=== PATIENT | male | born 1975 | race African-American/Black ===

== ENCOUNTER 2018-11-30 12:05 | Observation (INO) | payer SELFPAY ==
[~2018-11-30] VITALS: Ht 193 cm; Wt 135.0 kg
[2018-11-30] VITALS (13 sets, daily range): BP systolic 93–144; BP diastolic 64–86
--- NOTE | 2018-11-30 12:28 | NUR ---
PT AMB TO ROOM IN NO DISTRESS
[2018-11-30 12:51] LABS: HEMATOCRIT 41.1 % (39.0-50.0); HEMOGLOBIN 13.4 g/dl (14.0-18.0); IMMATURE GRANULOCYTES 0.2 % (0.0-5.0); MEAN CELL VOLUME 80.1 fL CALC (80.0-100.0); MEAN CORPUSCULAR HGB 26.1 pG CALC (26.0-32.0); MEAN CORPUSCULAR HGB CONC 32.6 g/L CALC (32.0-36.0); NEUT# 6.09 thou/uL (1.82-7.42); RED BLOOD COUNT 5.13 mill/uL (4.70-6.10); RED CELL DISTRI WIDTH 13.3 % (11.5-15.5)
[2018-11-30 13:06] LABS: ALBUMIN 4.7 g/dL (3.2-5.0); ALKALINE PHOSPHATASE 241 u/l (38-126); BILIRUBIN, TOTAL 1.4 mg/dL (0.0-1.4); BUN 25 mg/dL (9-20); BUN/CREATININE RATIO 18 (12-20 (CALC)); CARBON DIOXIDE 22 mmol/l (22-30); CHLORIDE 89 mmol/l (95-108); CREATININE 1.4 mg/dL (0.7-1.3); GFR 56 ML/MIN (>=60 (CALC)); GFR FOR AFR.AMER. > 60 ML/MIN (>=60 (CALC)); SGOT/AST 37 u/l (17-59); SODIUM 127 mmol/l (137-146); TOTAL PROTEIN 7.8 g/dL (6.3-8.2)
[2018-11-30 13:16] LABS: ANION GAP 21 (6-22 (CALC)); POTASSIUM 5.4 mmol/l (3.5-5.1)
[2018-11-30 13:17] LABS: URINE BILIRUBIN - DIPSTICK NEGATIVE (NEGATIVE); URINE BLOOD DIPSTICK NEGATIVE (NEGATIVE); URINE COLOR YELLOW; URINE GLUCOSE - DIPSTICK >=1000 mg/dL (NEGATIVE); URINE KETONE NEGATIVE (NEGATIVE); URINE LEUK ESTERASE NEGATIVE (NEGATIVE); URINE NITRITE - DIPSTICK NEGATIVE (Negative); URINE PH 5.5 (4.5-8.0); URINE PROTEIN - DIPSTICK NEGATIVE (NEG-TRACE); URINE SPECIFIC GRAVITY <=1.005; URINE UROBILINOGEN - DIPSTICK 0.2 E.U./dL (0.2)
[2018-11-30] MEDS ORDERED: AMLODIPINE5 MG PO (13:23)
[2018-11-30] MEDS ORDERED: METOPROL TAR25 MG PO (13:23)
[2018-11-30] MEDS ORDERED: HUMULIN 70/30 SC (13:24)
--- NOTE | 2018-11-30 13:27 | NUR ---
PT STATES HE DOESNT WANT TO STAY IN HOSPITAL, JULIANNA BARON WENT INTO SPEAK TO PT. AFTER TALKING TO PT FOR ABOUT 15 MIN, PT HAS DECIDED TO STAY AND TRY AND GET INSULIN DOWN.
--- NOTE | 2018-11-30 13:34 | NUR ---
PT REMAINS ALERT/ORIENTED X3. VITAL SIGNS STABLE. PT STATES HE TRIED TO GET HIS INSULIN AFTER BEING DISCHARGED FROM [place] BUT INSULIN WAS GOING TO BE OVER 400 A BOTTLE AND COULD NOT AFFORD IT.
--- NOTE | 2018-11-30 13:40 | NUR ---
DR. SEQUEIRA IS EXAMINING PT AND SPEAKING TO HIM AT THIS TIME
--- NOTE | 2018-11-30 14:07 | NUR ---
INSULIN DRIP BEGUN AT 5 UNITS PER HOUR FOR BLOOD SUGAR OF 826..
--- NOTE | 2018-11-30 14:12 | NUR ---
AFTER LOOKING AT EKG, DR. KONG ASKING FOR A CARDIOLOGY CONSULT,
--- NOTE | 2018-11-30 14:25 | NUR ---
ELIZABETH PERFORMED AGAIN, REMAINS READING HI, NOTIFIED, NO NEW ORDERS GIVEN
--- NOTE | 2018-11-30 14:29 | NUR ---
REPORT GIVEN TO ICU, PT PLACED ON STRETCHER, WITH CARDIAC MONITER TO GO TO ICU
--- NOTE | 2018-11-30 14:40 | NUR ---
PT TAKEN TO ICU PER STRETCHER AND MONITER.
--- NOTE | 2018-11-30 14:45 | NUR ---
PT ARRIVED TO UNIT VIA STRETCHER WITH ER STAFF; ALERT AND ORIENTED. AMBULATED TO BED INDEPENDENTLY WITH STEADY GAIT. DENIES PAIN. RESPIRATIONS EVEN AND UNLABORED ON ROOM AIR. INSULIN DRIP INFUSING UPON ARRIVAL AT 5 UNITS/HR AND MAINTANCE FLUIDS INFUSING AT 100ML/HR PER ORDER. PT REQUESTED TO URINATE AND VOIDED 325ML CLEAR YELLOW URINE. ORIENTED TO ROOM AND CALL LIGHT SYSTEM. PLAN OF CARE DISCUSSED. PT ENCOURAGED TO VERBALIZE CONCERNS. STATES UNDERSTANDING. SAFETY MEASURES IN PLACE. CALL LIGHT WITHIN REACH.
--- NOTE | 2018-11-30 15:13 | NUR ---
UPON ARRIVAL ACCU CHECK CONTINUES TO READ CR HI; STAT SERUM GLUCOSE OBTAINED; AWAITING RESULTS. SOME EDUCATION PROVIDED TO PT ON DM. PT REQUESTING SNACK. ASSESSMENT COMPLETE. TYESHA BARKER.
--- NOTE | 2018-11-30 16:08 | NUR ---
LAB CALLED WITH CRITICAL GLUCOSE RESULT OF 637. HOURLY ACCU CHECK AT THIS TIME READS CRITICALLY HIGH; WILL CONTINUE INSULIN DRIP AT 5 UNITS/HR PER PROTOCOL. PT HAS NO REQUESTS OR CONCERNS AT THIS TIME.
--- NOTE | 2018-11-30 18:15 | NUR ---
ACCU CHECK DOWN TO 375 AND INSULIN DRIP TITRATED TO 4 UNITS/HR. DINNER PROVIDED. PT SITTING UP ON EDGE OF BED TO USE URINAL.
--- NOTE | 2018-11-30 19:03 | NUR ---
PATIENT IS LAERT AND ORIENTED X4, ON ROOM AIR, SATS 95%. AFEBRILE. BILATERAL PUPILS 4 MM BRISK AND REACTIVE TO LIGHT. PATIENT SITTING UP ON SIDE OF THE BED, REPORTS HE FELT LIKE HIS RIGHT LEG WAS "CRAMPNG," OTHERWISE HE IS PAIN FREE, NO CHEST PAIN, NO SHORTNESS OF BREATH. LUNG SOUNDS ARE CLEAR. ABDOMEN IS SOFT AND ACTIVE BOWEL SOUNDS, HE WAS ABLE TO TOLERATE HIS DINNER MEAL, IS ASKING FOR A DIET CHERI CRISTOBAL WITH ICE. RADIAL AND PEDAL PULSES ARE STRONG. NO EDEMA PRESENT. RAC IV INTACT AND FLUSHES PROPERLY, SALINE LOCKED. LAC IV INTACT AND HAS INSULIN DRIP INFUSING AT 4 UNITS/HR OR 4 ML/HR ALONG WITH LACTATED RINGERS INFUSING AT 100 ML/HR. BLOOD SUGAR WAS 321 MG/DL. PATIENT WAS EDUCATED ON HOURLY BLOOD GLUCOSE INSULIN CHECKS AND EXPLAINED TO HIM RIPRAP MAN WILL BE COMING THROUGH THE NIGHT FOR BLOOD DRAW TO CHECK HIS TROPONIN LABS. PATIENT EDUCATED AUTOMATIC GLOVE TURNER AND FORMER LIGHT. CALL LIGHT WITHIN REACH.
--- NOTE | 2018-11-30 20:00 | NUR ---
BS 270, TITRATED INSULIN DRIP TO 3 UNITS/HR OR 3 ML/HR, PATIENT HAD QUESTION ABOUT HIS BLOOD PRESSURE MEDICATIONS, EDUCATED ON WHAT MEDICATIONS HE WILL BE RECEIVING TONIGHT INCLUDING HIS HOME MEDICATIONS. PATIENT UNDERSTANDS AND AGREES, NO OTHER NEEDS AT THIS TIME. CALL LIGHT WITHIN REACH.
--- NOTE | 2018-11-30 22:00 | NUR ---
PATIENT WITH EYES CLOSED, EASILY AROUSES. ON ROOM AIR, SATS 95%. NO ACUTE DISTRESS SHOWN. NO PAIN REPORTED. BS IS 299, REMAINS ON 3 UNITS/HR OR 3ML/HR ON THE INSULIN DRIP. NO NEEDS AT THIS TIME, CALL LIGHT WITHIN REACH.
[2018-12-01] VITALS (12 sets, daily range): BP systolic 86–124; BP diastolic 66–77
--- NOTE | 2018-12-01 00:06 | NUR ---
PATIENT WITH HOB 30 DEGREES, HAS EYES CLOSED, AROUSES EASILY. ON ROOM AIR. NO ACUTE DISTRESS SHOWN. BS IS 240 AND INSLIN DRIP REMAINS AT 3 UNITS/HR, HAD TO PRICK DIFFRENT FINGERS A FEW TIMES SINCE NOT ENOUGH BLOOD SAMPLE FOR ACCUCHECK MACHINE TO READ, PATIENT TOLERATED. NO PAIN REPORTED, NO NEEDS AT THIS TIME. CALL LIGHT WITHIN REACH.
--- NOTE | 2018-12-01 00:15 | NUR ---
UPPER AND BOTTOM LACER HAND IN ROOM FOR BLOOD DRAW.
--- NOTE | 2018-12-01 02:00 | NUR ---
PATIENT IS SLEEPING, NO ACUTE DISTRESS SHOWN, ON ROOM AIR. NO REPORTS OF PAIN. BS 205, INSULIN DRIP REMAINS AT 3 UNITS PER HOUR, NOW ON NORMAL SLAINE AT 100ML/HR. NO NEEDS AT THIS TIME. CALL LIGHT WITHIN REACH.
--- NOTE | 2018-12-01 03:00 | NUR ---
PATIENT'S BS IS 174 MG/DL, INSULIN DRIP TITRATED TO 2 UNITS/HR OR 2 ML/HR.
--- NOTE | 2018-12-01 04:00 | NUR ---
PATIENT IS SLEEPING, ON ROOM AIR, SATS 94%. NO ACUTE DISTRESS SHOWN. BS 198 AND INSULIN DRIP IS INFUSING AT 2 UNITS/HR. NO NEEDS AT THIS TIME. CALL LIGHT WITHIN REACH.
[2018-12-01 06:17] LABS: HEMATOCRIT 41.4 % (39.0-50.0); HEMOGLOBIN 13.5 g/dl (14.0-18.0); MEAN CELL VOLUME 79.6 fL CALC (80.0-100.0); MEAN CORPUSCULAR HGB CONC 32.6 g/L CALC (32.0-36.0); RED BLOOD COUNT 5.2 mill/uL (4.70-6.10); RED CELL DISTRI WIDTH 13.5 % (11.5-15.5)
[2018-12-01 06:42] LABS: BUN 22 mg/dL (9-20); BUN/CREATININE RATIO 21 (12-20 (CALC)); CALCULATED LDLCHOLESTEROL 119 mg/dL (62-129 (CALC)); CHOLESTEROL HDL RATIO 5.4 (<4.4 (CALC)); CREATININE 1.1 mg/dL (0.7-1.3); GFR > 60 ML/MIN (>=60 (CALC)); GFR FOR AFR.AMER. > 60 ML/MIN (>=60 (CALC)); HDL CHOLESTEROL 37 mg/dL (>=40); MAGNESIUM 2.1 mg/dL (1.6-2.3); TOTAL CHOLESTEROL 202 mg/dl (0-199); TOTAL TRIGLYCERIDES 226 mg/dl (30-149); VLDL CHOLESTROL 45 mg/dl (5-56 (CALC))
[2018-12-01 06:51] LABS: ANION GAP 14 (6-22 (CALC)); CARBON DIOXIDE 27 mmol/l (22-30); CHLORIDE 101 mmol/l (95-108); POTASSIUM 3.9 mmol/l (3.5-5.1); SODIUM 138 mmol/l (137-146)
--- NOTE | 2018-12-01 07:30 | NUR ---
Pt resting in bed with eyes closed, arouses easily to verbal stimuli, AM assessment completed see interventions, accu check completed BS currently 144, Insulin gtt remains unchanged, lungs clear with no sob or distress noted, abd soft and bs present last BM yesterday per report, Skin is warm dry and intact and pt has strong steady gait and can be independent with ADL care, No edema noted, BP stable and pt is afebrile, IVF infusing as ordered into 20g in left AC, site intact with no redness or swellinf noted, 20g saline lock intact in RAC as well, safety measure reinforced, Tele continues reading SR rate in the 60-70's, will continue to monitor.
--- NOTE | 2018-12-01 07:59 | NUR ---
AM MEAL DELIVERED TO BEDSIDE, PT INSTRUCTED TO CALL FOR ANY NEEDED ASSISTANCE. FRESH WATER PROVIDED WELL.
--- NOTE | 2018-12-01 10:03 | NUR ---
PT SITTING UP ON EDGE OF BED ASKING ABOUT D/C, ACCU CHECK COMPLETED, INSULIN GTT CONTINUES, CALL SAMUEL WITHIN REACH.
--- NOTE | 2018-12-01 10:40 | NUR ---
INSULIN GTT STOPPED PER VERBAL ORDER , PLAN OF CARE DISCUSSED AND WILL CONTINUE TO MONITOR.
--- NOTE | 2018-12-01 11:14 | NUR ---
INTO SEE PATIENT, PLAN OF CARE DISCUSSED INCLDUING D/C FOLLOW UP PLANS, PT VERBALIZES UNDERSTANDING.
--- NOTE | 2018-12-01 11:15 | NUR ---
ELISEO BOWER FROM BUSINESS OFFICE INTO SEE PT.
[2018-12-01] MEDS ORDERED: ADLT ASA LOW81 MG PO (11:21)
--- NOTE | 2018-12-01 11:22 | NUR ---
PT ADMINISTERED INSULIN COVERAGE WITH GOOD/CLEAN TECHNIQUE AND TOLERATED WELL, WILL CONTINUE TO MONITOR.
[2018-12-01] MEDS ORDERED: NOVOLIN 70/30 SC (11:23)
[2018-12-01] MEDS ORDERED: COZAAR25 MG PO (11:24)
--- NOTE | 2018-12-01 12:30 | NUR ---
Discharge instructions given. Patient verbalizes understanding of same. Discharged in stable condition via Wheelchair to Home with staff. All belongings sent with pt.
== END 2018-12-01 12:30 | disposition home or self-care (01) | DRG 638 ==
LOC: ED 12:05 → ED-I 13:22 → ED 13:39 → ICU 13:40
PROVIDERS: ADMIT Internal Medicine; ATTEND Internal Medicine
DX: E11.00 Type 2 diabetes mellitus with hyperosmolarity without nonketotic hyperglycemic-hyperosmolar coma (NKHHC) (principal); N17.9 Acute kidney failure, unspecified; E11.65 Type 2 diabetes mellitus with hyperglycemia; I10 Essential (primary) hypertension; R94.31 Abnormal electrocardiogram [ECG] [EKG]; T38.3X6A Underdosing of insulin and oral hypoglycemic [antidiabetic] drugs, initial encounter; Z91.120 Patient's intentional underdosing of medication regimen due to financial hardship; Z79.4 Long term (current) use of insulin

== ENCOUNTER 2019-04-13 10:44 | Emergency (ER) | payer OTHER ==
[~2019-04-13] VITALS: Ht 193 cm; Wt 133.4 kg
[~2019-04-13 10:44] MED LIST: ADLT ASA LOW81 MG PO; AMLODIPINE5 MG PO; COZAAR25 MG PO; HUMULIN 70/30 SC; NOVOLIN 70/30 SC
[2019-04-13] MEDS ORDERED: NOVOLIN 70/30 SC (11:06)
[2019-04-13] MEDS ORDERED: METOPROL TAR25 MG PO ×2 (11:07→15:18)
[2019-04-13] MEDS ORDERED: AMLODIPINE BESYL5 MG PO ×2 (11:07→15:18)
[2019-04-13 11:28] LABS: URINE BLOOD DIPSTICK NEGATIVE (NEGATIVE); URINE GLUCOSE - DIPSTICK 250 mg/dL (NEGATIVE); URINE KETONE NEGATIVE (NEGATIVE); URINE LEUK ESTERASE NEGATIVE (NEGATIVE); URINE PH 5.5 (4.5-8.0); URINE PROTEIN - DIPSTICK 30 mg/dL (NEG-TRACE); URINE SPECIFIC GRAVITY >=1.030
[2019-04-13 11:31] LABS: URINE BILIRUBIN - DIPSTICK LARGE (NEGATIVE); URINE COLOR AMBER; URINE NITRITE - DIPSTICK POSITIVE (Negative)
[2019-04-13 11:33] LABS: URINE EPITHELIAL CELLS FEW EPI/hpf (0-FEW); URINE MUCUS FEW hpf (NONE-FEW)
[2019-04-13 11:34] LABS: URINE HYALINE CAST FEW lpf (NONE-RARE)
[2019-04-13 12:13] LABS: BARBITURATES NEGATIVE (NEGATIVE); COCAINE NEGATIVE (NEGATIVE); METHADONE NEGATIVE (NEGATIVE); OXCYCODONE NEGATIVE (NEGATIVE); TETRAHYDROCANNABIONOL NEGATIVE (NEGATIVE); TRICYLIC ANTIDEPRESSANTS NEGATIVE (NEGATIVE)
[2019-04-13 12:27] LABS: HEMATOCRIT 38.8 % (39.0-50.0); HEMOGLOBIN 12.4 g/dl (14.0-18.0); IMMATURE GRANULOCYTES 0.3 % (0.0-5.0); MEAN CORPUSCULAR HGB 26.2 pG CALC (26.0-32.0); NEUT# 3.73 thou/uL (1.82-7.42); RED BLOOD COUNT 4.73 mill/uL (4.70-6.10); RED CELL DISTRI WIDTH 15.4 % (11.5-15.5)
[2019-04-13 12:45] LABS: ALBUMIN 4.3 g/dL (3.2-5.0); ALKALINE PHOSPHATASE 719 u/l (38-126); ANION GAP 14 (6-22 (CALC)); BUN 10 mg/dL (9-20); BUN/CREATININE RATIO 10 (12-20 (CALC)); CARBON DIOXIDE 27 mmol/l (22-30); CHLORIDE 104 mmol/l (95-108); CREATININE 1.1 mg/dL (0.7-1.3); GFR > 60 ML/MIN (>=60 (CALC)); GFR FOR AFR.AMER. > 60 ML/MIN (>=60 (CALC)); SGOT/AST 238 u/l (17-59); SODIUM 140 mmol/l (137-146); TOTAL PROTEIN 7.9 g/dL (6.3-8.2)
[2019-04-13 13:10] LABS: DIRECT BILIRUBIN 1.8 mg/dl (0.0-0.3)
[2019-04-13] MEDS ORDERED: KEFLEX500 M1 PO (15:52)
[2019-04-13 16:00] VITALS: BP 140/78
== END 2019-04-13 16:00 | disposition left against medical advice (07) | DRG 948 ==
LOC: ED 10:44
PROVIDERS: Emergency Medicine
DX: R79.89 Other specified abnormal findings of blood chemistry (principal); I10 Essential (primary) hypertension; Z91.19 Patient's noncompliance with other medical treatment and regimen; R82.90 Unspecified abnormal findings in urine
CPT/HCPCS: Q9967

== ENCOUNTER 2019-04-22 14:08 | Emergency (ER) | payer OTHER ==
[~2019-04-22] VITALS: Ht 193 cm; Wt 133.0 kg
[~2019-04-22 14:08] MED LIST changes: +AMLODIPINE BESYL5 MG PO; +KEFLEX500 M1 PO; +METOPROL TAR25 MG PO
[2019-04-22 16:03] LABS: HEMATOCRIT 38.8 % (39.0-50.0); HEMOGLOBIN 12.6 g/dl (14.0-18.0); IMMATURE GRANULOCYTES 0.3 % (0.0-5.0); MEAN CORPUSCULAR HGB CONC 32.5 g/L CALC (32.0-36.0); NEUT# 4.48 thou/uL (1.82-7.42); RED BLOOD COUNT 4.85 mill/uL (4.70-6.10); RED CELL DISTRI WIDTH 15.9 % (11.5-15.5)
[2019-04-22 16:20] LABS: ALBUMIN 4.2 g/dL (3.2-5.0); ALKALINE PHOSPHATASE 666 u/l (38-126); ANION GAP 15 (6-22 (CALC)); BUN 11 mg/dL (9-20); BUN/CREATININE RATIO 12 (12-20 (CALC)); CARBON DIOXIDE 24 mmol/l (22-30); CHLORIDE 105 mmol/l (95-108); CREATININE 0.9 mg/dL (0.7-1.3); GFR > 60 ML/MIN (>=60 (CALC)); GFR FOR AFR.AMER. > 60 ML/MIN (>=60 (CALC)); SGOT/AST 296 u/l (17-59); SODIUM 140 mmol/l (137-146)
[2019-04-22 16:21] LABS: BILIRUBIN, TOTAL 10.9 mg/dL (0.0-1.4)
[2019-04-22 16:34] LABS: AMYLASE 76 u/l (30-110); LIPASE 277 u/l (23-300)
[2019-04-22 16:42] LABS: URINE BLOOD DIPSTICK NEGATIVE (NEGATIVE); URINE GLUCOSE - DIPSTICK 100 mg/dL (NEGATIVE); URINE KETONE TRACE mg/dL (NEGATIVE); URINE LEUK ESTERASE NEGATIVE (NEGATIVE); URINE PH 6.5 (4.5-8.0); URINE PROTEIN - DIPSTICK 30 mg/dL (NEG-TRACE); URINE SPECIFIC GRAVITY >=1.030
[2019-04-22 16:44] LABS: URINE BILIRUBIN - DIPSTICK LARGE (NEGATIVE); URINE NITRITE - DIPSTICK POSITIVE (Negative)
[2019-04-22 16:45] LABS: URINE BACTERIA FEW hpf; URINE COLOR BROWN; URINE SQUAMOUS EPITHELIAL CELL FEW EPI/hpf (0-FEW)
[2019-04-22 16:55] LABS: MYOGLOBIN 56 ng/mL (0 - 121)
[2019-04-22 16:56] LABS: CPK 312 u/l (52-200)
[2019-04-22 18:39] VITALS: BP 157/93
[2019-04-22 18:55] LABS: ACT PARTIAL THROMBO TIME 26.4 SECONDS (20.0-32.5); PROTHROMBIN TIME 10.4 SECONDS (9.0-12.5)
== END 2019-04-22 18:39 | disposition short-term general hospital (02) | DRG 446 ==
LOC: ED 14:08
PROVIDERS: Family Medicine
DX: K83.1 Obstruction of bile duct (principal); I10 Essential (primary) hypertension; E11.9 Type 2 diabetes mellitus without complications; Z79.4 Long term (current) use of insulin
CPT/HCPCS: Q9967

== ENCOUNTER 2019-12-07 16:49 | Emergency (ER) | payer OTHER ==
[2019-12-07 18:03] LABS: HEMATOCRIT 38.3 % (39.0-50.0); HEMOGLOBIN 12.4 g/dl (14.0-18.0); IMMATURE GRANULOCYTES 0.3 % (0.0-5.0); MEAN CORPUSCULAR HGB 25.6 pG CALC (26.0-32.0); MEAN CORPUSCULAR HGB CONC 32.4 g/dL CAL (32.0-36.0); NEUT# 4.17 thou/uL (1.82-7.42); RED BLOOD COUNT 4.85 mill/uL (4.70-6.10); RED CELL DISTRI WIDTH 13.3 % (11.5-15.5)
[2019-12-07 18:33] LABS: ALBUMIN 4.2 g/dL (3.2-5.0); BUN 15 mg/dL (9-20); BUN/CREATININE RATIO 15 (12-20 (CALC)); CHLORIDE 102 mmol/l (95-108); GFR > 60 ML/MIN (>=60 (CALC)); GFR FOR AFR.AMER. > 60 ML/MIN (>=60 (CALC)); LIPASE 86 u/l (23-300); POTASSIUM 3.9 mmol/l (3.5-5.1); SODIUM 137 mmol/l (137-146); TOTAL PROTEIN 7.5 g/dL (6.3-8.2)
[2019-12-07 18:34] LABS: ALKALINE PHOSPHATASE 113 u/l (38-126); ANION GAP 9 (6-22 (CALC)); BILIRUBIN, TOTAL 1.2 mg/dL (0.0-1.4); CARBON DIOXIDE 30 mmol/l (22-30); SGOT/AST 27 u/l (17-59)
[2019-12-07 19:08] LABS: URINE BILIRUBIN - DIPSTICK NEGATIVE (NEGATIVE); URINE BLOOD DIPSTICK NEGATIVE (NEGATIVE); URINE COLOR YELLOW; URINE GLUCOSE - DIPSTICK NEGATIVE (NEGATIVE); URINE KETONE NEGATIVE (NEGATIVE); URINE LEUK ESTERASE NEGATIVE (NEGATIVE); URINE NITRITE - DIPSTICK NEGATIVE (Negative); URINE PROTEIN - DIPSTICK NEGATIVE (NEG-TRACE)
[2019-12-07] MEDS ORDERED: PROTONIX40 MG PO (20:10)
[2019-12-07] MEDS ORDERED: LIBRAX1 CAP PO (20:10)
[2019-12-07 20:20] VITALS: BP 139/79
== END 2019-12-07 20:20 | disposition home or self-care (01) | DRG 392 ==
LOC: ED 16:49
PROVIDERS: Family Medicine
DX: R10.11 Right upper quadrant pain (principal); R10.12 Left upper quadrant pain; R10.13 Epigastric pain; R14.0 Abdominal distension (gaseous); D17.5 Benign lipomatous neoplasm of intra-abdominal organs; I10 Essential (primary) hypertension; E11.9 Type 2 diabetes mellitus without complications; Z79.4 Long term (current) use of insulin
CPT/HCPCS: Q9967